=== PATIENT | male | born 1985 | race Caucasian/White ===

== ENCOUNTER 2017-01-01 11:31 | Emergency (ER) | payer OTHER, SELFPAY ==
[~2017-01-01] VITALS: Ht 185.4 cm; Wt 106.7 kg
[2017-01-01 13:35] VITALS: BP 134/94
== END 2017-01-01 13:52 | disposition home or self-care (01) ==
LOC: M ED 11:31
DX: H90.5 Unspecified sensorineural hearing loss (principal)